=== PATIENT | female | born 1990 | race Caucasian/White ===

== ENCOUNTER → 2016-05-29 | Outpatient (CLI) | payer OTHER ==
[2016-05-29 17:05] LABS: HEMATOCRIT 38.6 % (37.0-47.0); HEMOGLOBIN 12.7 g/dL (12.0-16.0); MEAN CORPUSCULAR HEMOGLOBIN 24.2 PG (27-31); MEAN CORPUSCULAR HGB CONC 32.9 g/dL (33-37); MEAN PLATELET VOLUME 9.7 FL (7.4-12.2); RDW COEFFICIENT OF VARIATION 13.9 % (11.5-14.5); RED BLOOD COUNT 5.25 10^6/uL (4.20-5.40); WHITE BLOOD COUNT 7.56 10^3/uL (4.8-10.8)
[2016-05-29 17:19] LABS: HEMOGLOBIN A1C 6.57 % (4.2-6.0); MEAN BLOOD GLUCOSE (CALC) 132.781 mg/dL
[2016-05-29 17:26] LABS: ASPARTATE AMINO TRANSFERASE 16 IU/L (8-39); BILIRUBIN,TOTAL 0.3 mg/dL (0.3-1.2); BLOOD UREA NITROGEN 11 mg/dL (7-22); BUN/CREATININE RATIO 18.33 (6-20); CALCIUM 9.7 mg/dL (8.7-10.7); CHLORIDE 102 meq/L (98-112); CREATININE 0.6 mg/dL (0.50-1.20); EST GLOMERULAR FILTRATION > 60 (>60 ml/min/1.73m(2)); GLUCOSE 150 mg/dL (78-110); POTASSIUM 4.1 meq/L (3.8-5.2); SODIUM 140 meq/L (135-145); TOTAL PROTEIN 7.1 g/dL (6.1-8.0)
== END ==
LOC: MOB LAB 15:56
PROVIDERS: ATTEND Student in an Organized Health Care Education/Training Program
DX: R10.13 Epigastric pain (principal); R11.0 Nausea; R73.09 Other abnormal glucose; N92.0 Excessive and frequent menstruation with regular cycle
CPT/HCPCS: 36415; 80053; 83036; 85027

== ENCOUNTER → 2016-08-10 | Outpatient (CLI) | payer OTHER ==
[2016-08-10 17:29] LABS: BLOOD UREA NITROGEN 15 mg/dL (7-22); CALCIUM 9.7 mg/dL (8.7-10.7); EST GLOMERULAR FILTRATION > 60 (>60 ml/min/1.73m(2))
[2016-08-10 17:32] LABS: HEMOGLOBIN 12.4 g/dL (12.0-16.0); MEAN CORPUSCULAR HGB CONC 32.6 g/dL (33-37); MEAN CORPUSCULAR VOLUME 73.6 FL (81-99); MEAN PLATELET VOLUME 9.5 FL (7.4-12.2); RED BLOOD COUNT 5.16 10^6/uL (4.20-5.40)
[2016-08-10 18:04] LABS: FERRITIN 33.1 ng/mL (12.00-336.70)
== END ==
LOC: MOB LAB 15:18
PROVIDERS: ATTEND Student in an Organized Health Care Education/Training Program
DX: G62.89 Other specified polyneuropathies (principal)
CPT/HCPCS: 36415; 80048; 82728; 84443; 85027; 85652; 86038